=== PATIENT | male | born 1985 | race Caucasian/White ===

== ENCOUNTER 2021-07-23 14:57 | Inpatient (IN) | payer SELFPAY ==
[~2021-07-23] VITALS: Ht 170.2 cm; Wt 86.0 kg
--- NOTE | 2021-07-23 15:07 | ED Chest Pain ---
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 The symptoms became more intense at about 2 PM but initially started at [id number]. He had dizziness and shortness of breath at the time as well. He felt like his heart rate was going too fast and then too slow. Symptoms are better now but still present. EMS did give him 324 mg of aspirin in route to the hospital. He has never had these symptoms before. No cardiac history though he reports a family history of early [place] in their 30s/40s. Takes no medications regularly. He felt okay upon awakening this morning. He did take some Advil at about 11 AM for this chest discomfort but it did not help much. He also drank a [employer] canned coffee prior to the onset of this pain. He then started drinking a bunch of water as he thought the caffeine from his coffee might be the issue. He does have a history of anxiety but reports that he does not feel anxious currently. 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 He does not smoke. Occasionally drinks ETOH, most recently this past weekend but does not drink daily. Timing/Duration: changing over time Severity/Quality: moderate Location: central Radiation: no radiation Activities at Onset: none ASA po AGILE QA TESTER: No NTG SL AGILE QA TESTER: No (AMBER WAITE APRN) Allergies and Home Medications Allergies Coded Allergies: No Known Drug Allergies (Unverified , 07/23/21) Patient Home Medication List Home Medication List Reviewed: Yes (AMBER WAITE APRN) Acetaminophen (Tylenol Extra Strength) 500 Mg Tablet, 1,000 MG PO Q8H PRN for PAIN-MILD (1-4), (Reported) Entered as Reported by: RISHABH CHARLES on 07/24/211530 Last Action: Reviewed Famotidine (Pepcid AC) 10 Mg Tablet, 10 MG PO BID PRN for HEARTBURN, (Reported) Entered as Reported by: RISHABH CHARLES on 3/18/22 1531 Last Action: Reviewed Fluticasone Propionate (Flonase Allergy Relief) 9.9 Ml [place].susp, 1 SPRAY NSEACH BID PRN for CONGESTION, (Reported) Entered as Reported by: RISHABH CHARLES on 07/24/211530 Last Action: Reviewed Loratadine (Claritin) 10 Mg Tablet, 10 MG PO DAILY PRN for ALLERGY SYMPTOMS, (Reported) Entered as Reported by: RISHABH CHARLES on 07/24/211530 Last Action: Reviewed Naproxen Sodium (Aleve) 220 Mg Tablet, 220-440 MG PO Q12H PRN for PAIN-MILD (1- 4), (Reported) Entered as Reported by: RISHABH CHARLES on 07/24/211530 Last Action: Reviewed Review of Systems Review of Systems Constitutional: see HPI EENTM: No Symptoms Reported Respiratory: No Symptoms Reported Cardiovascular: See HPI, Chest Pain Gastrointestinal: No Symptoms Reported Genitourinary: No Symptoms Reported Musculoskeletal: no symptoms reported Skin: no symptoms reported Psychiatric/Neurological: No Symptoms Reported Endocrine: No Symptoms Reported (AMBER WAITE APRN) Physical Exam Vital Signs Vital Signs - First Documented 07/23/21 14:57 Temp 36.3 Pulse 91 Resp 16 B/P (MAP) 149/101 (117) Pulse Ox 99 O2 Delivery Room Air (TAYA TURNER MD) Vital Signs Capillary Refill : (AMBER WAITE APRN) Height, Weight, BMI Height: '" Weight: lbs. oz. kg; BMI Method: General Appearance: No Apparent Distress, WD/WN, Anxious, Other (He denies feeling anxious but he appears anxious as he keeps his eyes closed during conversation, has deep breathing. His heart rate is 87 sinus, oxygen 98% on room air respiratory rate 23. Blood pressure 139/99. His EKG shows sinus rhythm at 94 without ectopy normal intervals and no ST segment changes.) Neck: Full Range of Motion, Normal Inspection Respiratory: Normal Breath Sounds, No Accessory Muscle Use, No Respiratory Distress Cardiovascular: Regular Rate, Rhythm, Normal Peripheral Pulses Gastrointestinal: Normal Bowel Sounds, Non Tender, Soft Extremity: Normal Capillary Refill, Normal Inspection Neurologic/Psychiatric: Alert, Oriented x3 Skin: Normal Color, Warm/Dry (AMBER WAITE APRN) Progress/Results/Core Measures Results/Orders Lab Results Laboratory Tests Test 07/23/21 15:00 07/23/21 16:12 Range/Units White Blood Count 6.9 4.3-11.0 10^3/uL Red Blood Count 4.95 4.30-5.52 10^6/uL Hemoglobin 15.1 13.3-17.7 g/dL Hematocrit 44 40-54 % Mean Corpuscular Volume 89 80-99 fL Mean Corpuscular Hemoglobin 31 25-34 pg Mean Corpuscular Hemoglobin Concent 34 32-36 g/dL Red Cell Distribution Width 13.3 10.0-14.5 % Platelet Count 320 130-400 10^3/uL Mean Platelet Volume 9.9 9.0-12.2 fL Immature Granulocyte % (Auto) 0 % Neutrophils (%) (Auto) 61 42-75 % Lymphocytes (%) (Auto) 30 12-44 % Monocytes (%) (Auto) 8 0-12 % Eosinophils (%) (Auto) 1 0-10 % Basophils (%) (Auto) 0 0-10 % Neutrophils # (Auto) 4.2 1.8-7.8 X 10^3 Lymphocytes # (Auto) 2.1 1.0-4.0 X 10^3 Monocytes # (Auto) 0.6 0.0-1.0 X 10^3 Eosinophils # (Auto) 0.1 0.0-0.3 10^3/uL Basophils # (Auto) 0.0 0.0-0.1 10^3/uL Immature Granulocyte # (Auto) 0.0 0.0-0.1 10^3/uL Prothrombin Time 13.6 12.2-14.7 SEC INR Comment 1.0 0.8-1.4 Activated Partial Thromboplast Time 31 24-35 SEC D-Dimer 0.98 H 0.00-0.49 UG/ML Sodium Level 134 L 135-145 MMOL/L Potassium Level 4.1 3.6-5.0 MMOL/L Chloride Level 102 98-107 MMOL/L Carbon Dioxide Level 19 L 21-32 MMOL/L Anion Gap 13 5-14 MMOL/L Blood Urea Nitrogen 19 H 7-18 MG/DL Creatinine 1.11 0.60-1.30 MG/DL Estimat Glomerular Filtration Rate 88 BUN/Creatinine Ratio 17 Glucose Level 90 70-105 MG/DL Calcium Level 9.3 8.5-10.1 MG/DL Corrected Calcium 9.1 8.5-10.1 MG/DL Magnesium Level 1.7 1.6-2.4 MG/DL Total Bilirubin 0.7 0.1-1.0 MG/DL Aspartate Amino Transf (AST/SGOT) 31 5-34 U/L Alanine Aminotransferase (ALT/SGPT) 39 0-55 U/L Alkaline Phosphatase 56 40-136 U/L Myoglobin 270.9 H 10.0-92.0 NG/ML Troponin I 0.110 H <0.028 NG/ML C-Reactive Protein High Sensitivity 0.28 0.00-0.50 MG/DL B-Type Natriuretic Peptide < 10.0 <100.0 PG/ML Total Protein 7.3 6.4-8.2 GM/DL Albumin 4.3 3.2-4.5 GM/DL Serum Alcohol < 10 <10 MG/DL Erythrocyte Sedimentation Rate 8 0-15 MM/HR (TAYA TURNER MD) My Orders Orders - TAYA TURNER MD Cbc With Automated Diff (07/23/21 15:02) Magnesium (07/23/21 15:02) Chest 1 View, Ap/Pa Only (07/23/21 15:02) Ekg Tracing (07/23/21 15:02) Comprehensive Metabolic Panel (07/23/21 15:02) Myoglobin Serum (07/23/21 15:02) Protime With Inr (07/23/21 15:02) Partial Thromboplastin Time (07/23/21 15:02) O2 (07/23/21 15:02) Monitor-Rhythm Ecg Trace Only (07/23/21 15:02) Ed Iv/Invasive Line Start (07/23/21 15:02) Fibrin Degradation Products (07/23/21 15:00) Troponin I [place] (07/23/21 15:00) (TAYA TURNER MD) Vital Signs/I&O 07/23/21 14:57 Temp 36.3 Pulse 91 Resp 16 B/P (MAP) 149/101 (117) Pulse Ox 99 O2 Delivery Room Air (TAYA TURNER MD) Departure Communication (Admissions) Spoke with Dr. Holden and Dr. Ferrari. He has already had aspirin by EMS, we will do 1 mg/KG Lovenox subcu twice daily first dose now. His heart rate was 91 so put him on a low-dose beta-marques. Toprol-XL [address] Ferrari can review and adjust that. I will order a repeat troponin at 6 hours after the initial which will be about 9 PM and then repeat in the morning. NAME: [facility] REC#: [id number] PT STATUS: REG ER : 1985 PHYSICIAN: TAYA TURNER MD ADMIT DATE: 07/23/21/ER Signed Date of Exam:07/23/21 CHEST 1 VIEW, AP/PA ONLY INDICATION: Chest pain. COMPARISON: None. FINDINGS: Single view of the chest demonstrates clear lungs bilaterally. The heart is normal. There is no pneumothorax. Osseous structures are normal. IMPRESSION: Negative chest. Dictated by: Dictated on workstation # [id number] Dict: 07/23/21 1538 Trans: 07/23/21 1541 [id number] [id number] Interpreted by: JULIANNA STOREY Electronically signed by: JULIANNA STOREY 07/23/21 1541 (AMBER WAITE APRN) Impression Primary Impression: NSTEMI (non-ST elevated myocardial infarction) Disposition: ADMITTED INPATIENT Condition: Stable Admissions Decision to Admit Reason: Admit from ER (General) Decision to Admit/Date: Jul 23, 2021 Time/Decision to Admit Time: 16:09 (AMBER WAITE APRN) Departure-Patient Inst. Referrals: NO,LOCAL PHYSICIAN (PCP/Family) Primary Care Physician ATTENDING PHYSICIAN NOTE: I was physically present as attending physician in the emergency department duri ng the care of this patient, but I was not directly involved in the decision making or delivery of care for this patient. (TAYA TURNER MD) AMBER WAITE APRN Jul 23, 2021 15:07 TAYA TURNER MD Jul 24, 2021 19:41
[2021-07-23] MEDS ORDERED: LORazepam INJ 2 MG/ML (ATIVAN) VIAL IVP PRN (15:15)
[2021-07-23 15:20] LABS: BASOPHILS % (AUTO) 0 % (0-10); EOSINOPHILS # (AUTO) 0.1 10^3/uL (0.0-0.3); EOSINOPHILS % (AUTO) 1 % (0-10); HEMATOCRIT 44 % (40-54); HEMOGLOBIN 15.1 g/dL (13.3-17.7); LYMPHOCYTES # (AUTO) 2.1 X 10^3 (1.0-4.0); LYMPHOCYTES % (AUTO) 30 % (12-44); MEAN CORPUSCULAR HEMOGLOBIN 31 pg (25-34); MEAN CORPUSCULAR HGB CONC 34 g/dL (32-36); MEAN CORPUSCULAR VOLUME 89 fL (80-99); MEAN PLATELET VOLUME 9.9 fL (9.0-12.2); MONOCYTES # (AUTO) 0.6 X 10^3 (0.0-1.0); MONOCYTES % (AUTO) 8 % (0-12); NEUTROPHILS # (AUTO) 4.2 X 10^3 (1.8-7.8); NEUTROPHILS % (AUTO) 61 % (42-75); PLATELET COUNT 320 10^3/uL (130-400); WHITE BLOOD COUNT 6.9 10^3/uL (4.3-11.0)
[2021-07-23] MEDS ORDERED: LORazepam INJ 2 MG/ML (ATIVAN) VIAL IVP ONE (15:21)
[2021-07-23 15:39] LABS: ALBUMIN 4.3 GM/DL (3.2-4.5); POTASSIUM 4.1 MMOL/L (3.6-5.0)
[2021-07-23 15:40] LABS: CALCIUM 9.3 MG/DL (8.5-10.1)
[2021-07-23 15:41] LABS: TOTAL PROTEIN 7.3 GM/DL (6.4-8.2)
--- NOTE | 2021-07-23 15:42 | Diagnostic Imaging Report ---
INDICATION: Chest pain. COMPARISON: None. FINDINGS: Single view of the chest demonstrates clear lungs bilaterally. The heart is normal. There is no pneumothorax. Osseous structures are normal. IMPRESSION: Negative chest. Dictated by: Dictated on workstation # [id number]
[2021-07-23 15:43] LABS: BILIRUBIN,TOTAL 0.7 MG/DL (0.1-1.0)
[2021-07-23 15:44] LABS: FIBRIN DEGRADATION PRODUCTS 0.98 UG/ML (0.00-0.49); PROTHROMBIN TIME PATIENT 13.6 SEC (12.2-14.7)
[2021-07-23 15:45] LABS: CREATININE SERUM 1.11 MG/DL (0.60-1.30)
[2021-07-23 15:48] LABS: MAGNESIUM 1.7 MG/DL (1.6-2.4)
[2021-07-23] MEDS ORDERED: KETOROLAC 30 MG/ML VIAL IVP ONE (16:00)
[2021-07-23] MEDS ORDERED: ENOXAPARIN 40 MG/0.4 ML (LOVENOX) SYR SC ONE (16:30)
[2021-07-23] MEDS ORDERED: ENOXAPARIN 60 MG/0.6 ML (LOVENOX) SYR SC ONE ×2 (16:30→17:00)
[2021-07-23] MEDS ORDERED: NS 100 ML (IVPB) BAG IV ONE (16:30)
[2021-07-23] MEDS ORDERED: IOHEXOL 350 MG/ML 100 ML (OMNIPAQUE 350) VIAL IV ONE (16:30)
[2021-07-23] MEDS ORDERED: HOLD METFORMIN - RECEIVED CONTRAST 20 ML VIAL IV SCH (16:30)
[2021-07-23] MEDS ORDERED: morphine INJ 10 MG/ML 1ML (SYR OR VIAL) IVP STA (16:39)
[2021-07-23] MEDS ORDERED: morphine INJ 10 MG/ML 1ML (SYR OR VIAL) ONE (16:40)
[2021-07-23] MEDS ORDERED: ENOXAPARIN INJECTION 30 MG/0.3 ML SYR ONE (16:45)
[2021-07-23] MEDS ORDERED: ENOXAPARIN 60 MG/0.6 ML (LOVENOX) SYR ONE (16:45)
--- NOTE | 2021-07-23 16:49 | Diagnostic Imaging Report ---
INDICATION: Chest pain and shortness of breath and weakness. TECHNIQUE: Multiple contiguous axial images were obtained through the chest after uneventful bolus administration of intravenous contrast. 3D reconstructed CTA MIP acquisitions were also performed. Auto Exposure Controls were utilized during the CT exam to meet ALARA standards for radiation dose reduction. COMPARISON: There is no prior study for comparison. FINDINGS: The pulmonary parenchymal vessels appear well opacified with no CT evidence of pulmonary emboli. The thoracic aorta shows no evidence of dissection or aneurysm. Great vessel origins are patent and without stenosis. There are no enlarged mediastinal or hilar nodes. There are some calcified nodes in the right hilum and in the subcarinal region compatible with old granulomatous disease. There is no pleural or pericardial fluid. Visualized portions of the upper abdomen appear unremarkable. Lung parenchymal windows demonstrate no consolidation. There is a calcified granuloma in the right lower lobe and a small calcified granuloma in the right upper lobe. IMPRESSION: No CT evidence of pulmonary emboli or aortic dissection or aneurysm. Old granulomatous changes. No acute process in the chest. Dictated by: Dictated on workstation # [id number]
[2021-07-23 16:55] LABS: AMPHETAMINE SCREEN, URINE NEGATIVE (NEGATIVE); BARBITURATE SCREEN URINE NEGATIVE (NEGATIVE); BENZODIAZEPINES SCREEN URINE NEGATIVE (NEGATIVE); CANNABINOID SCREEN, URINE NEGATIVE (NEGATIVE); COCAINE SCREEN URINE NEGATIVE (NEGATIVE); METHADONE STAT NEGATIVE (NEGATIVE); METHAMPHETAMINE SCREEN URINE S NEGATIVE (NEGATIVE); OPIATE SCREEN URINE NEGATIVE (NEGATIVE); OXYCODONE STAT NEGATIVE (NEGATIVE); PROPOXYPHENE STAT NEGATIVE (NEGATIVE); TRICYCLIC ANTIDEPRESSANTS SCRE NEGATIVE (NEGATIVE)
[2021-07-23] MEDS ORDERED: ENOXAPARIN INJECTION 30 MG/0.3 ML SYR SC ONE (17:00)
[2021-07-23] MEDS ORDERED: morphine INJ 4 MG/ML 1 ML (VIAL/SYRINGE) IV PRN (17:30)
[2021-07-23] MEDS ORDERED: ONDANSETRON 4 MG/2 ML (SDV) Z0FRAN IV PRN (17:30)
[2021-07-23] MEDS ORDERED: CATHETER FLUSH 10 ML SYR IVP PRN (17:30)
[2021-07-23] MEDS: LACTATED RINGERS 1,000 ML IV SCH (17:32)
[2021-07-23 19:22] VITALS: BP 123/86
[2021-07-23 22:00] VITALS: BP 112/75
[2021-07-23] MEDS ORDERED: NITROPRUSSIDE INJECTION 50 MG in D5W IV SOLUTION (EXCEL) 250 ML IV SCH (22:00)
[2021-07-23] MEDS ORDERED: NITRO DRIP 25000 MCG/D5W 250 ML IV ONE (22:03)
[2021-07-23] MEDS ORDERED: NITRO DRIP 25000 MCG/D5W 250 ML IV SCH (22:45)
[2021-07-23 23:00] VITALS: BP 108/67
--- NOTE | 2021-07-23 23:37 | Tele-ICU Consult ---
History of Present Illness History of Present Illness Date Seen by Provider: Jul 23, 2021 Time Seen by Provider: 23:33 History of Present Illness 36 yo M came to ED with chest pain, troponin elevated at 0.18 and then 2.37, EKG and CXR ok Started on Lovenox bid, also IV NTG for BP 140/100 CTA did not show any evidence of pulm emb or aortic dissection Allergies and Home Medications Allergies Coded Allergies: No Known Drug Allergies (Unverified , 07/23/21) Past Medical/Social/Family Hx Patient Social History Tobacco Use?: No Smoking Status: Current Someday Smoker Smokeless type used: Snuff Smokeless Tobacco Frequency: Current Someday User Use of E-Cig and/or Vaping dev: No Substance use?: No Alcohol Use?: Yes Alcohol type: Beer, Other Alcohol Frequency: Couple times a week Pt stated abuse/neglect: No Immunizations Up To Date Influenza Vaccine Up-to-Date: No; Not Current Current Status Advance Directives: No Primary Language: Cambodian Preferred Spoken Language: Cambodian Focused Exam Height, Weight, BMI Height: '" Weight: lbs. oz. kg; 30.51 BMI Method: Exam Exam Patient acknowledged, consented, and participated in this virtual visit which was conducted using real time audio/video Vital Signs Date Time Temp Pulse Resp B/P (MAP) Pulse Ox O2 Delivery O2 Flow Rate FiO2 07/23/21 19:22 37.2 90 22 123/86 (98) 99 Room Air 07/23/21 19:00 90 07/23/21 17:30 96 Room Air 07/23/21 17:29 91 07/23/21 17:05 85 15 134/85 98 Room Air 07/23/21 14:57 36.3 91 16 149/101 (117) 99 Room Air Height & Weight Height: '" Weight: lbs. oz. kg; 30.51 BMI Method: General Appearance: No Apparent Distress, WD/WN, Anxious, Other (He denies fe eling anxious but he appears anxious as he keeps his eyes closed during conversation, has deep breathing. His heart rate is 87 sinus, oxygen 98% on room air respiratory rate 23. Blood pressure 139/99. His EKG shows sinus rhythm at 94 without ectopy normal intervals and no ST segment changes.) Neck: Full Range of Motion, Normal Inspection Respiratory: Normal Breath Sounds, No Accessory Muscle Use, No Respiratory Distress Cardiovascular: Regular Rate, Rhythm, Normal Peripheral Pulses Capillary Refill: Less Than 3 Seconds Extremity: Normal Capillary Refill, Normal Inspection Neurologic/Psychiatric: Alert, Oriented x3 Skin: Normal Color, Warm/Dry Results Lab Laboratory Tests 07/23/21 15:00 BRENT BARRERA MD Jul 23, 2021 23:37
--- NOTE | 2021-07-23 23:49 | Tele-ICU Consult ---
History of Present Illness History of Present Illness Date Seen by Provider: Jul 23, 2021 Time Seen by Provider: 23:50 History of Present Illness 36 yo M came to ED with chest pain, troponin elevated at 0.18 and then 2.37, EKG and CXR ok Started on Lovenox bid, also IV NTG for BP 140/100 CTA did not show any evidence of pulm emb or aortic dissection Impression is NSTEMI Chest pain is about same, got morphine in ED Family Hx of CAD Allergies and Home Medications Allergies Coded Allergies: No Known Drug Allergies (Unverified , 07/23/21) Past Medical/Social/Family Hx Patient Social History Tobacco Use?: No Smoking Status: Current Someday Smoker Smokeless type used: Snuff Smokeless Tobacco Frequency: Current Someday User Use of E-Cig and/or Vaping dev: No Substance use?: No Alcohol Use?: Yes Alcohol type: Beer, Other Alcohol Frequency: Couple times a week Pt stated abuse/neglect: No Immunizations Up To Date Influenza Vaccine Up-to-Date: No; Not Current Current Status Advance Directives: No Primary Language: Maldivian Preferred Spoken Language: Maldivian Review of Systems Constitutional: see HPI EENTM: see HPI Respiratory: see HPI Cardiovascular: see HPI Gastrointestinal: see HPI Genitourinary: see HPI Musculoskeletal: see HPI Skin: see HPI Psychiatric/Neurological: See HPI Focused Exam Height, Weight, BMI Height: '" Weight: lbs. oz. kg; 30.51 BMI Method: Exam Exam Patient acknowledged, consented, and participated in this virtual visit which was conducted using real time audio/video Vital Signs Date Time Temp Pulse Resp B/P (MAP) Pulse Ox O2 Delivery O2 Flow Rate FiO2 07/23/21 19:22 37.2 90 22 123/86 (98) 99 Room Air 07/23/21 19:00 90 07/23/21 17:30 96 Room Air 07/23/21 17:29 91 07/23/21 17:05 85 15 134/85 98 Room Air 07/23/21 14:57 36.3 91 16 149/101 (117) 99 Room Air Height & Weight Height: '" Weight: lbs. oz. kg; 30.51 BMI Method: General Appearance: No Apparent Distress, WD/WN, Anxious, Other (He denies feeling anxious but he appears anxious as he keeps his eyes closed during conversation, has deep breathing. His heart rate is 87 sinus, oxygen 98% on room air respiratory rate 23. Blood pressure 139/99. His EKG shows sinus rhythm at 94 without ectopy normal intervals and no ST segment changes.) Neck: Full Range of Motion, Normal Inspection Respiratory: Chest Non Tender, Lungs Clear, Normal Breath Sounds, No Accessory Muscle Use, No Respiratory Distress Cardiovascular: Regular Rate, Rhythm, Normal Peripheral Pulses Capillary Refill: Less Than 3 Seconds Gastrointestinal: normal bowel sounds, non tender Extremity: Normal Capillary Refill, Normal Inspection Neurologic/Psychiatric: Alert, Oriented x3 Skin: Normal Color, Warm/Dry Results Lab Laboratory Tests 07/23/21 15:00 Assessment/Plan Assessment/Plan NSTEMI, probably will go to CCL in am Critical Care: Critically Ill Patient Time spent with patient (mins): 25 BRENT BARRERA MD Jul 23, 2021 23:49
[2021-07-24] VITALS (33 sets, daily range): BP systolic 89–151; BP diastolic 51–95
[2021-07-24] MEDS: LACTATED RINGERS 1,000 ML IV SCH (01:39)
[2021-07-24] MEDS ORDERED: ENOXAPARIN 80 MG/0.8 ML (LOVENOX) SYR SC SCH (05:00)
[2021-07-24 05:13] LABS: BASOPHILS % (AUTO) 1 % (0-10); EOSINOPHILS # (AUTO) 0.2 10^3/uL (0.0-0.3); EOSINOPHILS % (AUTO) 4 % (0-10); HEMATOCRIT 42 % (40-54); LYMPHOCYTES # (AUTO) 2.4 10^3/uL (1.0-4.0); LYMPHOCYTES % (AUTO) 42 % (12-44); MEAN CORPUSCULAR HEMOGLOBIN 31 pg (25-34); MEAN CORPUSCULAR HGB CONC 33 g/dL (32-36); MEAN CORPUSCULAR VOLUME 92 fL (80-99); MEAN PLATELET VOLUME 10.5 fL (9.0-12.2); MONOCYTES # (AUTO) 0.5 10^3/uL (0.0-1.0); MONOCYTES % (AUTO) 9 % (0-12); NEUTROPHILS # (AUTO) 2.5 10^3/uL (1.8-7.8); NEUTROPHILS % (AUTO) 44 % (42-75); PLATELET COUNT 266 10^3/uL (130-400); WHITE BLOOD COUNT 5.6 10^3/uL (4.3-11.0)
[2021-07-24 05:31] LABS: POTASSIUM 4.4 MMOL/L (3.6-5.0)
[2021-07-24 05:33] LABS: CALCIUM 8.7 MG/DL (8.5-10.1)
[2021-07-24] MEDS ORDERED: CATHETER FLUSH 10 ML SYR IV PRN (06:30)
[2021-07-24] MEDS ORDERED: NS IV 1000 ML 1,000 ML IV ONE (06:30)
[2021-07-24] MEDS ORDERED: ROSUVASTATIN 20 MG (CRESTOR) TABLET PO SCH ×2 (06:45→21:00)
[2021-07-24] MEDS ORDERED: HEParin (CATH LAB) 2,000 ML IV ONE (08:18)
[2021-07-24] MEDS ORDERED: LIDOCAINE 1% INJ 50 ML (XYLOCAINE) VIAL ONE (08:18)
[2021-07-24] MEDS ORDERED: NS IV 1000 ML 1,000 ML ONE (08:18)
--- NOTE | 2021-07-24 08:37 | Pre-Op Note & Conscious Sedat ---
Pre-Operative Progress Note H&P Reviewed The H&P was reviewed, patient examined and no changes noted. Date H&P Reviewed: Jul 24, 2021 Time H&P Reviewed: 08:37 Pre-Op Diagnosis: NSTEMI Conscious Sedation Pre-Proced ASA Score 3 For ASA 3 and 4: Consider anesthesia and medical clearance. Also, for patients with a history of failed moderate sedation consider anesthesia. Airway Lungs Heart ASA score ASA 1: a normal healthy patient ASA 2: a patient with a mild systemic disease (mid diabetes, controlled hypertension, obesity ASA 3: a patient with a severe systemic disease that limits activity (angina, COPD, prior Myocardial infarction) ASA 4: a patient with an incapacitating disease that is a constant threat to life (CHF, renal failure) ASA 5: a moribund patient not expected to survive 24 hrs. (ruptured aneurysm) ASA 6: a declared brain- patient whose organs are being harvested. For emergent operations, add the letter E after the classification Mallampati Classification Grade 2 Sedation Plan Analgesia, Amnesia, Plan communicated to team members, Discussed options with patient/fam, Discussed risks with patient/fam The patient is an appropriate candidate to undergo the planned procedure, sedation, and anesthesia. The patient immediately re-assessed prior to indication. SLADE FRANCISCO JR, MD Jul 24, 2021 08:37
[2021-07-24] MEDS: ASPIRIN 81 MG CHEW (CHILDREN'S ASA) PO SCH (08:44)
--- NOTE | 2021-07-24 08:49 | Consultation-Cardiology ---
HPI-Cardiology Cardiology Consultation: Date of Consultation 07/24/21 Date of Admission 07/23/2021 Attending Physician Lainey Holden MD Admitting Physician No,Local Physician Consulting Physician SLADE FRANCISCO JR, MD HPI: Time Seen by a Provider: 08:44 Chief Complaint: Reason for consultation: NSTEMI. I had the pleasure of seeing Ra in the intensive care unit at [facility] in [place], [place] this morning. Yesterday he was unloading some packages from his truck and started developing palpitations and lightheadedness. He felt as though his heart was beating fast. Then he started developing substernal chest discomfort with radiation to his back, shoulders and neck. This made him feel short of breath. At first this was a sharp pain but then changed into a pressure in the center of his chest. He alerted his boss who then called 911 and he was taken to the emergency room for further evaluation. He was treated with aspirin, therapeutic dose of enoxaparin and admitted to the intensive care unit. Late last evening he was still having chest discomfort and I started him on intravenous nitroglycerin. This morning he still has some mild residual chest achiness. Overnight his troponin levels became elevated. He does not report paroxysmal nocturnal dyspnea, orthopnea, syncope, or ankle edema. He chews tobacco occasionally. His father had a myocardial infarction in his 30s. Certain portions of this document may have been dictated utilizing voice recognition technology. Inherent to this technology, typographical and grammatical errors may exist. As much as I am diligent to identify and correct these mistakes, some errors may remain in the document. Review of Systems-Cardiology Review of Systems Other comments Review of 10 organ systems is as per the history of present illness, otherwise negative. [id number]-Mbqljp Hx Patient Social History Smoking Status: Current Someday Smoker Have you traveled recently?: No Alcohol Use?: Yes Pt feels they are or have been: No Past Medical History PMH As described under Assessment. Family Medical History Family Medical History: His father had a myocardial infarction in his 30s. Allergies and Home Medications Allergies Coded Allergies: No Known Drug Allergies (Unverified , 07/23/21) Patient Home Medication List Home Medication List Reviewed: Yes Exam Vital Signs Vital Signs Date Time Temp Pulse Resp B/P (MAP) Pulse Ox O2 Delivery O2 Flow Rate FiO2 07/24/21 08:00 59 14 105/61 (76) 97 07/24/21 08:00 Room Air 07/24/21 07:30 35.9 Physical Exam General: Alert. No acute distress. Well nourished and appears stated age. He is overweight. Eye: Extraocular movements are intact. Conjunctivae are clear. There are no xanthelasma. HENT: Normocephalic. Atraumatic. Carotid pulsations 2/2 without bruits. Neck: Jugular venous pressure does not appear elevated. No thyromegaly appreciated. Respiratory: Lungs are clear to auscultation. Respirations are non-labored. Breath sounds are equal. Symmetrical chest wall expansion. Cardiovascular: Normal rate. Regular rhythm. No murmur. No gallop. Point of maximal impulse is not appear displaced. Good pulses equal in all extremities. No edema. Gastrointestinal: Soft. Normal bowel sounds. Skin: Skin turgor is normal. There is no pallor. Musculoskeletal: No kyphosis or scoliosis appreciated. Neurologic: Alert and oriented to person, place, time. Cranial nerves 3-12 appear grossly intact. The patient has good motor tone strength in the upper and lower extremities bilaterally. Psychiatric: Cooperative. Appropriate mood & affect. Labs Laboratory Tests Test 07/23/21 15:00 07/23/21 16:12 07/23/21 16:34 07/23/21 21:01 Range/Units White Blood Count 6.9 4.3-11.0 10^3/uL Red Blood Count 4.95 4.30-5.52 10^6/uL Hemoglobin 15.1 13.3-17.7 g/dL Hematocrit 44 40-54 % Mean Corpuscular Volume 89 80-99 fL Mean Corpuscular Hemoglobin 31 25-34 pg Mean Corpuscular Hemoglobin Concent 34 32-36 g/dL Red Cell Distribution Width 13.3 10.0-14.5 % Platelet Count 320 130-400 10^3/uL Mean Platelet Volume 9.9 9.0-12.2 fL Immature Granulocyte % (Auto) 0 % Neutrophils (%) (Auto) 61 42-75 % Lymphocytes (%) (Auto) 30 12-44 % Monocytes (%) (Auto) 8 0-12 % Eosinophils (%) (Auto) 1 0-10 % Basophils (%) (Auto) 0 0-10 % Neutrophils # (Auto) 4.2 1.8-7.8 X 10^3 Lymphocytes # (Auto) 2.1 1.0-4.0 X 10^3 Monocytes # (Auto) 0.6 0.0-1.0 X 10^3 Eosinophils # (Auto) 0.1 0.0-0.3 10^3/uL Basophils # (Auto) 0.0 0.0-0.1 10^3/uL Immature Granulocyte # (Auto) 0.0 0.0-0.1 10^3/uL Prothrombin Time 13.6 12.2-14.7 SEC INR Comment 1.0 0.8-1.4 Activated Partial Thromboplast Time 31 24-35 SEC D-Dimer 0.98 H 0.00-0.49 UG/ML Sodium Level 134 L 135-145 MMOL/L Potassium Level 4.1 3.6-5.0 MMOL/L Chloride Level 102 98-107 MMOL/L Carbon Dioxide Level 19 L 21-32 MMOL/L Anion Gap 13 5-14 MMOL/L Blood Urea Nitrogen 19 H 7-18 MG/DL Creatinine 1.11 0.60-1.30 MG/DL Estimat Glomerular Filtration Rate 88 BUN/Creatinine Ratio 17 Glucose Level 90 70-105 MG/DL Calcium Level 9.3 8.5-10.1 MG/DL Corrected Calcium 9.1 8.5-10.1 MG/DL Magnesium Level 1.7 1.6-2.4 MG/DL Total Bilirubin 0.7 0.1-1.0 MG/DL Aspartate Amino Transf (AST/SGOT) 31 5-34 U/L Alanine Aminotransferase (ALT/SGPT) 39 0-55 U/L Alkaline Phosphatase 56 40-136 U/L Myoglobin 270.9 H 10.0-92.0 NG/ML Troponin I 0.110 H 2.377 *H <0.028 NG/ML C-Reactive Protein High Sensitivity 0.28 0.00-0.50 MG/DL B-Type Natriuretic Peptide < 10.0 <100.0 PG/ML Total Protein 7.3 6.4-8.2 GM/DL Albumin 4.3 3.2-4.5 GM/DL Serum Alcohol < 10 <10 MG/DL Erythrocyte Sedimentation Rate 8 0-15 MM/HR Urine Opiates Screen NEGATIVE NEGATIVE Urine Oxycodone Screen NEGATIVE NEGATIVE Urine Methadone Screen NEGATIVE NEGATIVE Urine Propoxyphene Screen NEGATIVE NEGATIVE Urine Barbiturates Screen NEGATIVE NEGATIVE Ur Tricyclic Antidepressants Screen NEGATIVE NEGATIVE Urine Phencyclidine Screen NEGATIVE NEGATIVE Urine Amphetamines Screen NEGATIVE NEGATIVE Urine Methamphetamines Screen NEGATIVE NEGATIVE Urine Benzodiazepines Screen NEGATIVE NEGATIVE Urine Cocaine Screen NEGATIVE NEGATIVE Urine Cannabinoids Screen NEGATIVE NEGATIVE Test 07/24/21 04:30 Range/Units White Blood Count 5.6 4.3-11.0 10^3/uL Red Blood Count 4.58 4.30-5.52 10^6/uL Hemoglobin 14.0 13.3-17.7 g/dL Hematocrit 42 40-54 % Mean Corpuscular Volume 92 80-99 fL Mean Corpuscular Hemoglobin 31 25-34 pg Mean Corpuscular Hemoglobin Concent 33 32-36 g/dL Red Cell Distribution Width 13.6 10.0-14.5 % Platelet Count 266 130-400 10^3/uL Mean Platelet Volume 10.5 9.0-12.2 fL Immature Granulocyte % (Auto) 0 % Neutrophils (%) (Auto) 44 42-75 % Lymphocytes (%) (Auto) 42 12-44 % Monocytes (%) (Auto) 9 0-12 % Eosinophils (%) (Auto) 4 0-10 % Basophils (%) (Auto) 1 0-10 % Neutrophils # (Auto) 2.5 1.8-7.8 10^3/uL Lymphocytes # (Auto) 2.4 1.0-4.0 10^3/uL Monocytes # (Auto) 0.5 0.0-1.0 10^3/uL Eosinophils # (Auto) 0.2 0.0-0.3 10^3/uL Basophils # (Auto) 0.0 0.0-0.1 10^3/uL Immature Granulocyte # (Auto) 0.0 0.0-0.1 10^3/uL Sodium Level 138 135-145 MMOL/L Potassium Level 4.4 3.6-5.0 MMOL/L Chloride Level 108 H 98-107 MMOL/L Carbon Dioxide Level 20 L 21-32 MMOL/L Anion Gap 10 5-14 MMOL/L Blood Urea Nitrogen 17 7-18 MG/DL Creatinine 1.00 0.60-1.30 MG/DL Estimat Glomerular Filtration Rate 100 BUN/Creatinine Ratio 17 Glucose Level 83 70-105 MG/DL Calcium Level 8.7 8.5-10.1 MG/DL Troponin I 6.437 *H <0.028 NG/ML Triglycerides Level 130 <150 MG/DL Cholesterol Level 137 < 200 MG/DL LDL Cholesterol Direct 92 1-129 MG/DL VLDL Cholesterol 26 5-40 MG/DL HDL Cholesterol 35 L 40-60 MG/DL ECG Impression ECG Comment Sinus rhythm with nonspecific inferior T wave changes. Diagnosis/Problems Diagnosis/Problems (1) NSTEMI (non-ST elevated myocardial infarction) Status: Acute Assessment & Plan: He appears to be suffering a non-ST elevation myocardial infarction. I briefly reviewed his echocardiogram at the bedside and he appears to have a normal ejection fraction. Complete report to follow. He has been treated with aspirin, enoxaparin and intravenous nitroglycerin. He continues to have chest discomfort despite these medications. As such, I have recommended further evaluation with a cardiac catheterization. The benefits and risks of the procedure have been explained to the patient and he is in agreement to proceed. (2) Family history of premature coronary artery disease Assessment & Plan: As above. (3) Chewing tobacco use Assessment & Plan: He needs to work on cessation. He was counseled in this regard. SLADE FRANCISCO JR, MD Jul 24, 2021 08:49
--- NOTE | 2021-07-24 08:58 | Tele-ICU Progress Note ---
Progress Note Video assessment done , Hemodynamically stable Available charting reviewed NO TELE-ICU CONSULT REQUESTED CONTINUE TO MONITOR PER USUAL TELE-ICU PROTOCOL No need for Tele-ICU interventions Plans as delineated by bedside physicians / consultants Focused Exam Height, Weight, BMI Height: '" Weight: lbs. oz. kg; 30.51 BMI Method: GUILLAUME SIMMONS MD Jul 24, 2021 08:58
[2021-07-24] MEDS ORDERED: VERAPAMIL 5 MG/2 ML (CALAN) VIAL IV ONE (09:01)
[2021-07-24] MEDS ORDERED: NITRO DRIP 25000 MCG/D5W 250 ML IV ONE (09:02)
[2021-07-24] MEDS ORDERED: fentaNYL INJ 100 MCG/2 ML AMP ONE (09:02)
[2021-07-24] MEDS ORDERED: MIDAZOLAM 5 MG/5 ML (VERSED) VIAL ONE (09:02)
[2021-07-24] MEDS ORDERED: HEParin 1000 UNIT/ML (10ML VIAL) FOR BOLUS ONE (09:02)
[2021-07-24] MEDS ORDERED: ENOXAPARIN 100 MG/1 ML (LOVENOX) SYR ONE (09:50)
[2021-07-24] MEDS ORDERED: TICAGRELOR 90 MG TABLET (BRILINTA) PO ONE (09:54)
[2021-07-24] MEDS ORDERED: PATIENT MAY USE OWN MEDS, ALL PO SCH (10:15)
--- NOTE | 2021-07-24 10:20 | Cardiac Cath Report ---
CARDIAC CATHETERIZATION DATE OF PROCEDURE: 07/24/2021 INDICATION: NSTEMI. HISTORY: The patient is a 36 year old male with no previously known history of coronary artery disease but a very strong family history with his father having had suffered a myocardial infarction in his 30s. Yesterday he was unloading his truck and developed substernal chest discomfort. He called 911 and came to the emergency room for further evaluation. His initial troponin level was marginally elevated. He was treated with aspirin and therapeutic dose of Lovenox. Overnight, his troponin levels have continued to trend upwards and he has had ongoing chest discomfort. As such, he is now referred for further evaluation with a cardiac catheterization. PROCEDURES PERFORMED: 1. Left heart catheterization with hemodynamic measurements. 2. Diagnostic hoh coronary angiography. 3. Drug-eluting stent placement to mid left anterior descending coronary artery. This was the ischemia related vessel for the non-ST elevation myocardial infarction. PROCEDURE DESCRIPTION: After informed consent and in the fasting state, left heart catheterization was performed through the right radial artery utilizing a 6 [place] system by percutaneous approach. A 5 [place] JR4 catheter and a 6 [place] CLS 3.5 guide catheter were utilized for the diagnostic portion of the procedure. The CLS 3.5 guide catheter was utilized for the percutaneous coronary intervention. All catheters were exchanged over a guidewire. Following the procedure, a vascular band was applied to the radial artery access site and the sheath was removed with good hemostasis. RESULTS: HEMODYNAMICS: The aortic pressure was 106/56 mmHg. The left ventricular pressure was 123/0 mmHg with a left ventricular end-diastolic pressure of 15 mmHg. There was no significant pressure gradient upon pullback across the aortic valve. CORONARY ANGIOGRAPHY: Left main coronary artery: Free of significant disease. Left anterior descending coronary artery: There was a 99% stenosis in the midportion of the vessel just distal to a large first diagonal branch. There was SASHA-1 flow to the apex. This was the ischemia related vessel for the non- ST elevation myocardial infarction. Left circumflex coronary artery: Free of significant disease. Right coronary artery: Dominant and free of significant disease. PERCUTANEOUS CORONARY INTERVENTION: Percutaneous coronary intervention was carried out on the left anterior descending coronary artery through the 6 [place] CLS 3.5 guide catheter. I first successfully crossed the stenosis with a [place] guidewire. I subsequently performed coronary angioplasty with a 3 x 12 mm Trek balloon at a pressure of 8 ciera for several inflations. Flow was restored. I subsequently deployed a 3.5 x 18 mm drug-eluting Xience Skypoint stent in the midportion of the left anterior descending coronary artery at a pressure of 16 ciera. I was careful to make sure the proximal edge of the stent did not encroach upon the large diagonal branch. Following stent placement, there was 0% residual stenosis with SASHA-3 flow. There was no evidence of plaque shift into the diagonal branch. IMPRESSION: 1. Normal central aortic pressure with mildly elevated left ventricular end- diastolic pressure. 2. There was severe disease in the midportion of the left anterior descending coronary artery with SASHA-1 flow. This was the ischemia related vessel for the non-ST elevation myocardial infarction. 3. Status post drug-eluting stent placement to the midportion of the left anterior descending coronary artery with a 3.5 x 18 mm Xience Skypoint stent with 0% residual stenosis and SASHA-3 flow. 4. The patient is known to have normal left ventricular systolic function with an estimated ejection fraction of 60-65% by echocardiogram performed prior to the procedure. Certain portions of this document may have been dictated utilizing voice recognition technology. Inherent to this technology, typographical and grammatical errors may exist. As much as I am diligent to identify and correct these mistakes, some errors may remain in the document. SLADE FRANCISCO JR, MD Jul 24, 2021 10:20
[2021-07-24] MEDS: NS IV 1000 ML 1,000 ML IV SCH ×2 (10:40→21:34)
--- NOTE | 2021-07-24 13:35 | History & Physical ---
ROSALINE OLSON 07/24/21 1335: History of Present Illness History of Present Illness Reason for visit/HPI Patient is a 36yo male w/o significant medical history who presented to ER yesterday with chest pain and tachycardia that started while he was unloading a semi-truck at work. He originally attributed the symptoms to the fact that he drank a can of starbucks coffee that morning which he doesnt usually do. He kept working through the pain and started drinking more water and took aleve but it kept worsening. Eventually the pain was sharp enough that he came to the ER. He was started on Lovenox and given some nitro but the chest pain persisted into this morning and his troponins elevated overnight so he was taken to the engineering laboratory technician. He has a family history of early onset CAD. Today he is still fatigued following the cardiac cath but overall feels better. Chest pain has resolved. Denies any shortness of breath, nausea/vomiting, sweats/chills or palpitations. Date of Admission Jul 23, 2021 at 22:06 Date Seen by a Provider: Jul 24, 2021 Time Seen by a Provider: 11:30 I consulted on this patient on 07/24/21 13:11 Attending Physician José Mathur MD Admitting Physician No,Local Physician Consult Allergies and Home Medications Allergies Coded Allergies: No Known Drug Allergies (Unverified , 07/23/21) Patient Home Medication List Aspirin (Children's Aspirin) 81 Mg Tab.chew, 81 MG PO DAILY@0900 Prescribed by: JOSÉ MATHUR on 07/25/21 112 Famotidine (Pepcid AC) 10 Mg Tablet, 10 MG PO BID PRN for HEARTBURN, (Reported) Entered as Reported by: RISHABH CHARLES on 07/24/211530 Last Action: Reviewed Fluticasone Propionate (Flonase Allergy Relief) 9.9 Ml [place].susp, 1 SPRAY NSE ACH BID PRN for CONGESTION, (Reported) Entered as Reported by: RISHABH CHARLES on 07/24/211530 Last Action: Reviewed Isosorbide Mononitrate (Isosorbide Mononitrate ER) 30 Mg Tab.er.24h, 30 MG PO DAILY Prescribed by: JOSÉ MATHUR on 07/25/21 112 Loratadine (Claritin) 10 Mg Tablet, 10 MG PO DAILY PRN for ALLERGY SYMPTOMS, (Reported) Entered as Reported by: RISHABH CHARLES on 07/24/211530 Last Action: Reviewed Metoprolol Succinate (Metoprolol Succinate) 25 Mg Tab.er.24h, 25 MG PO DAILY Prescribed by: JOSÉ MATHUR on 07/25/21 112 Nitroglycerin (Nitroglycerin) 0.4 Mg Tab.subl, 0.4 MG SL NEEDED PRN for CHEST PAIN (ANGINA) Prescribed by: JOSÉ MATHUR on 07/25/21 112 Rosuvastatin Calcium (Rosuvastatin Calcium) 20 Mg Tablet, 20 MG PO HS Prescribed by: JOSÉ MATHUR on 07/25/21 112 Ticagrelor (Brilinta) 90 Mg Tablet, 90 MG PO BID Prescribed by: JOSÉ MATHUR on 07/25/211120 Discontinued Medications Acetaminophen (Tylenol Extra Strength) 500 Mg Tablet, 1,000 MG PO Q8H PRN for PAIN-MILD (1-4), (Reported) Entered as Reported by: RISHABH CHARLES on 07/24/211530 Last Action: Reviewed Naproxen Sodium (Aleve) 220 Mg Tablet, 220-440 MG PO Q12H PRN for PAIN-MILD (1- 4), (Reported) Entered as Reported by: RISHABH CHARLES on 07/24/211530 Last Action: Reviewed Past Lmtumoi-Fcjkfs-Kbxmoc Hx Patient Social History Tobacco Use?: No Smoking Status: Current Someday Smoker Smokeless type used: Snuff Smokeless Tobacco Frequency: Current Someday User Use of E-Cig and/or Vaping dev: No Substance use?: No Alcohol Use?: Yes Alcohol type: Beer, Other Alcohol Frequency: Couple times a week Pt feels they are or have been: No Current Status Advance Directives: No Primary Language: Kinyarwanda Preferred Spoken Language: Kinyarwanda Family Medical History Premature coronary artery disease Review of Systems Constitutional: No chills, No diaphoresis Respiratory: No dyspnea on exertion, No short of breath Cardiovascular: chest pain Gastrointestinal: No abdominal pain, No nausea, No vomiting Physical Exam Vital Signs Vital Signs - First Documented 07/23/21 14:57 Temp 36.3 Pulse 91 Resp 16 B/P (MAP) 149/101 (117) Pulse Ox 99 O2 Delivery Room Air Capillary Refill : Less Than 3 Seconds Height, Weight, BMI Height: '" Weight: lbs. oz. kg; 30.51 BMI Method: General Appearance: No Apparent Distress, WD/WN HEENT: PERRL/EOMI Neck: Non Tender, Supple Respiratory: Lungs Clear, No Accessory Muscle Use, No Respiratory Distress Cardiovascular: Regular Rate, Rhythm, No Edema, Normal Peripheral Pulses Gastrointestinal: Normal Bowel Sounds, Non Tender, Soft Back: Normal Inspection Extremity: Normal Inspection, No Pedal Edema Neurologic/Psychiatric: Alert, Oriented x3 Skin: Normal Color Assessment/Plan Assessment and Plan NSTEMI Family history of early onset CAD - Normal EF on echo - Cardiac cath performed today, stent placed in LAD - Patient started on Aspirin, Ticagrelor, Metoprolol and Crestor - Currently stable, will monitor today and plan on discharge tomorrow if he continues to improve Problems: (1) NSTEMI (non-ST elevated myocardial infarction) Status: Acute (2) Family history of premature coronary artery disease Assessment & Plan: As above. (3) Chewing tobacco use Assessment & Plan: He needs to work on cessation. He was counseled in this regard. Admission Diagnosis Admission Status: Inpatient Order (span 2 midnights) Reason for Inpatient Admission: Monitor vitals, ensure no complications following PCI Clinical Quality Measures AMI/AHF: ASA po Prior to arrival: No JOSÉ MATHUR MD 07/25/212238: Allergies and Home Medications Allergies Coded Allergies: No Known Drug Allergies (Unverified , 07/23/21) Patient Home Medication List Home Medication List Reviewed: Yes Aspirin (Children's Aspirin) 81 Mg Tab.chew, 81 MG PO DAILY@0900 Prescribed by: JOSÉ MATHUR on 07/25/211120 Famotidine (Pepcid AC) 10 Mg Tablet, 10 MG PO BID PRN for HEARTBURN, (Reported) Entered as Reported by: RISHABH CHARLES on 07/24/211530 Last Action: Reviewed Fluticasone Propionate (Flonase Allergy Relief) 9.9 Ml [place].susp, 1 SPRAY NSEACH BID PRN for CONGESTION, (Reported) Entered as Reported by: RISHABH CHARLES on 07/24/21 153 Last Action: Reviewed Isosorbide Mononitrate (Isosorbide Mononitrate ER) 30 Mg Tab.er.24h, 30 MG PO DAILY Prescribed by: JOSÉ MATHUR on 3/19/22 1121 Loratadine (Claritin) 10 Mg Tablet, 10 MG PO DAILY PRN for ALLERGY SYMPTOMS, (Reported) Entered as Reported by: RISHABH CHARLES on 07/24/211530 Last Action: Reviewed Metoprolol Succinate (Metoprolol Succinate) 25 Mg Tab.er.24h, 25 MG PO DAILY Prescribed by: JOSÉ MATHUR on 07/25/211120 Nitroglycerin (Nitroglycerin) 0.4 Mg Tab.subl, 0.4 MG SL NEEDED PRN for CHEST PAIN (ANGINA) Prescribed by: JOSÉ MATHUR on 07/25/211120 Rosuvastatin Calcium (Rosuvastatin Calcium) 20 Mg Tablet, 20 MG PO HS Prescribed by: JOSÉ MATHUR on 07/25/211120 Ticagrelor (Brilinta) 90 Mg Tablet, 90 MG PO BID Prescribed by: JOSÉ MATHUR on 07/25/211120 Discontinued Medications Acetaminophen (Tylenol Extra Strength) 500 Mg Tablet, 1,000 MG PO Q8H PRN for PAIN-MILD (1-4), (Reported) Entered as Reported by: RISHABH CHARLES on 07/24/211530 Last Action: Reviewed Naproxen Sodium (Aleve) 220 Mg Tablet, 220-440 MG PO Q12H PRN for PAIN-MILD (1- 4), (Reported) Entered as Reported by: RISHABH CHARLES on 07/24/211530 Last Action: Reviewed Past Snuscgk-Sigasj-Gpbwfs Hx Family Medical History Premature coronary artery disease Assessment/Plan Assessment and Plan Admitted with NSTEMI. Cardiology consulted. Underwent heart cath with stent placement. Monitor. Supervisory-Addendum Brief Verification & Attestation Participated in pt care: history, MDM, physical Personally performed: exam, history, MDM, supervision of care Care discussed with: Medical Student Procedures: n/a Results interpretation: Verified all documentation A medical student performed and documented this service in my presence. I reviewed and verified all information documented by the medical student and made modifications to such information, when appropriate. I personally performed the physical exam and medical decision making. ROSALINE OLSON Jul 24, 2021 13:35 JOSÉ MATHUR MD Jul 25, 2021 22:39
[2021-07-24] MEDS ORDERED: ACET-2267 PO (15:31)
[2021-07-24] MEDS ORDERED: NAPR220T66 PO (15:31)
[2021-07-24] MEDS ORDERED: FLUT9.9S NSEACH (15:31)
[2021-07-24] MEDS ORDERED: LORA10TA76 PO (15:31)
[2021-07-24] MEDS ORDERED: FAMO10TA43 PO (15:31)
[2021-07-24] MEDS ORDERED: ACETAMINOPHEN 500 MG TAB (TYLENOL) ONE (18:05)
[2021-07-24] MEDS: ACETAMINOPHEN 500 MG TAB (TYLENOL) PO PRN ×2 (18:06→22:04)
[2021-07-24] MEDS ORDERED: ENOXAPARIN 40 MG/0.4 ML (LOVENOX) SYR SC SCH (19:00)
[2021-07-24] MEDS: TICAGRELOR 90 MG TABLET (BRILINTA) PO SCH (20:33)
[2021-07-25] VITALS (10 sets, daily range): BP systolic 106–165; BP diastolic 73–105
[2021-07-25] MEDS: ACETAMINOPHEN 500 MG TAB (TYLENOL) PO PRN ×2 (04:38→09:38)
[2021-07-25 05:18] LABS: HEMATOCRIT 44 % (40-54); HEMOGLOBIN 14.5 g/dL (13.3-17.7); MEAN CORPUSCULAR HEMOGLOBIN 30 pg (25-34); MEAN CORPUSCULAR HGB CONC 33 g/dL (32-36); MEAN CORPUSCULAR VOLUME 91 fL (80-99); MEAN PLATELET VOLUME 10.4 fL (9.0-12.2); PLATELET COUNT 262 10^3/uL (130-400); WHITE BLOOD COUNT 5.6 10^3/uL (4.3-11.0)
[2021-07-25 05:37] LABS: POTASSIUM 4.1 MMOL/L (3.6-5.0)
[2021-07-25 05:43] LABS: CREATININE SERUM 0.93 MG/DL (0.60-1.30)
[2021-07-25] MEDS ORDERED: ENOXAPARIN 40 MG/0.4 ML (LOVENOX) SYR SC SCH (06:00)
[2021-07-25] MEDS: NS IV 1000 ML 1,000 ML IV SCH (06:27)
--- NOTE | 2021-07-25 08:30 | Cardiology Progress Note ---
Progress Note-Cardiology Events since last exam Date Seen by Provider: Jul 25, 2021 Time Seen by Provider: 08:25 Events since last exam I am following him for an NSTEMI that was treated with 1 drug-eluting stent to the mid left anterior descending coronary artery. He still has some mild residual chest tightness. He denies dyspnea, palpitations, syncope, or ankle edema. Certain portions of this document may have been dictated utilizing voice recognition technology. Inherent to this technology, typographical and grammatical errors may exist. As much as I am diligent to identify and correct these mistakes, some errors may remain in the document. Vitals Last set of Vitals Signs Vital Signs 07/25/21 07/25/21 07:00 07:35 Temp 36.1 Pulse 58 Resp 11 B/P (MAP) 155/105 (122) Pulse Ox 99 O2 Delivery Room Air Labs Labs Laboratory Tests 07/25/21 05:08 Exam Vital Signs Vital Signs Date Time Temp Pulse Resp B/P (MAP) Pulse Ox O2 Delivery O2 Flow Rate FiO2 07/25/21 07:35 36.1 07/25/21 07:00 58 07/25/21 07:00 11 155/105 (122) 99 Room Air Physical Exam General: Alert. No acute distress. Eye: No xanthelasma. HENT: Normocephalic. Neck: Jugular venous pressure does not appear elevated. Respiratory: Lungs are clear to auscultation. Respirations are non-labored. Breath sounds are equal. Symmetrical chest wall expansion. Cardiovascular: Normal rate. Regular rhythm. No murmur. No gallop. No edema. Gastrointestinal: Soft. Normal bowel sounds. Skin: Warm. Dry. Neurologic: Alert and oriented to person, place, time. Cranial nerves 3-11 grossly intact. Psychiatric: Cooperative. Appropriate mood & affect. Labs Laboratory Tests Test 07/24/21 10:48 07/25/21 05:08 Range/Units Troponin I 5.808 *H <0.028 NG/ML White Blood Count 5.6 4.3-11.0 10^3/uL Red Blood Count 4.83 4.30-5.52 10^6/uL Hemoglobin 14.5 13.3-17.7 g/dL Hematocrit 44 40-54 % Mean Corpuscular Volume 91 80-99 fL Mean Corpuscular Hemoglobin 30 25-34 pg Mean Corpuscular Hemoglobin Concent 33 32-36 g/dL Red Cell Distribution Width 13.3 10.0-14.5 % Platelet Count 262 130-400 10^3/uL Mean Platelet Volume 10.4 9.0-12.2 fL Sodium Level 138 135-145 MMOL/L Potassium Level 4.1 3.6-5.0 MMOL/L Chloride Level 108 H 98-107 MMOL/L Carbon Dioxide Level 19 L 21-32 MMOL/L Anion Gap 11 5-14 MMOL/L Blood Urea Nitrogen 14 7-18 MG/DL Creatinine 0.93 0.60-1.30 MG/DL Estimat Glomerular Filtration Rate 109 BUN/Creatinine Ratio 15 Glucose Level 81 70-105 MG/DL Calcium Level 9.0 8.5-10.1 MG/DL Diagnosis/Problems Diagnosis/Problems (1) NSTEMI (non-ST elevated myocardial infarction) Status: Acute Assessment & Plan: He suffered a non-ST elevation myocardial infarction due to subtotal occlusion of the midportion of the left anterior descending coronary artery that was treated with 1 drug-eluting stent. There was no evidence of edge dissection or any other issues. However, he still has some mild residual chest tightness. Sometimes this can just be due to the myocardial infarction or stretching of the coronary artery due to the stent. He is on aspirin, ticagrelor, beta-marques and statin medication. I will start him on long-acting nitrates. If his chest tightness resolves later in the day, he could be discharged home. However, if he continues to have chest tightness, he may need to stay for 1 additional night. I should note, he has a normal ejection fraction. (2) Coronary artery disease with unstable angina pectoris Assessment & Plan: As above. (3) Obesity Assessment & Plan: He needs to work on weight loss. He was counseled in this regard. (4) Chewing tobacco use Assessment & Plan: He needs to work on cessation. He was counseled in this regard. (5) Family history of premature coronary artery disease Assessment & Plan: As above. SLADE FRANCISCO JR, MD Jul 25, 2021 08:30
[2021-07-25] MEDS: ASPIRIN 81 MG CHEW (CHILDREN'S ASA) PO SCH (08:32)
[2021-07-25] MEDS ORDERED: ASPI81TA64 PO ×2 (08:33→11:21)
[2021-07-25] MEDS ORDERED: ROSU20TA32 PO ×2 (08:33→11:21)
[2021-07-25] MEDS: TICAGRELOR 90 MG TABLET (BRILINTA) PO SCH (08:33)
[2021-07-25] MEDS ORDERED: TICA90TA PO ×2 (08:33→11:21)
[2021-07-25] MEDS ORDERED: ISOS30TA82 PO ×2 (08:33→11:21)
[2021-07-25] MEDS ORDERED: MTP25TSR PO ×2 (08:33→11:21)
[2021-07-25] MEDS ORDERED: NITROGLYCERIN 0.4 MG SL TABS BTL 25'S SL PRN (08:45)
[2021-07-25] MEDS ORDERED: ISOSORBIDE MONONITRATE 30 MG (IMDUR) TAB PO SCH (09:00)
[2021-07-25] MEDS ORDERED: ANTACID SUSP 30 ML UDC (MYLANTA) PO ONE (10:15)
[2021-07-25] MEDS ORDERED: LIDOCAINE 2% VISCOUS 15 ML UDC PO ONE (10:15)
[2021-07-25] MEDS ORDERED: NITR0.4T42 SL ×2 (10:30→11:21)
--- NOTE | 2021-07-25 22:29 | Discharge Summary ---
Discharge Summary Hospital Course Problems/Dx: (1) NSTEMI (non-ST elevated myocardial infarction) Status: Acute (2) Coronary artery disease with unstable angina pectoris (3) Obesity (4) Chewing tobacco use (5) Family history of premature coronary artery disease Hospital Course zDate of Admission: Jul 23, 2021 at 22:06 Admission Diagnosis : NSTEMI Family Physician/Provider: Na Abarca Physician Date of Discharge: 07/25/21 Discharge Diagnosis: NSTEMI Hospital Course: Ra Cain is a 36 year old male with no known past medical history who presented with chest pain and was admitted with NSTEMI. He has a strong family history of early CAD. Cardiology was consulted and assisted with his care. He underwent a left heart catheterization and was found to have an LAD lesion which was stented. He was started on Aspriin and Brilinta. He was also started on Imdur. He was started on Metoprolol and Crestor. He needs to establish care with a primary care physician in [place]. He also needs to get established with a academic computing director. He was discharged home in stable condition. Labs and Pending Lab Test: Laboratory Tests 07/25/21 05:08: White Blood Count 5.6, Red Blood Count 4.83, Hemoglobin 14.5, Hematocrit 44, Mean Corpuscular Volume 91, Mean Corpuscular Hemoglobin 30, Mean Corpuscular Hemoglobin Concent 33, Red Cell Distribution Width 13.3, Platelet Count 262, Mean Platelet Volume 10.4, Sodium Level 138, Potassium Level 4.1, Chloride Level 108H, Carbon Dioxide Level 19L, Anion Gap 11, Blood Urea Nitrogen 14, Creatinine 0.93, Estimat Glomerular Filtration Rate 109, BUN/Creatinine Ratio 15, Glucose Level 81, Calcium Level 9.0 Home Meds Active Nitroglycerin 0.4 Mg Tab.subl 0.4 Mg SL NEEDED PRN 30 Days Children's Aspirin (Aspirin) 81 Mg Tab.chew 81 Mg PO DAILY@0900 30 Days Metoprolol Succinate 25 Mg Tab.er.24h 25 Mg PO DAILY 30 Days Isosorbide Mononitrate ER (Isosorbide Mononitrate) 30 Mg Tab.er.24h 30 Mg PO DAILY 30 Days Rosuvastatin Calcium 20 Mg Tablet 20 Mg PO HS 30 Days Brilinta (Ticagrelor) 90 Mg Tablet 90 Mg PO BID 30 Days Reported Flonase Allergy Relief (Fluticasone Propionate) 9.9 Ml Astor.susp 1 Astor NSEACH BID PRN Claritin (Loratadine) 10 Mg Tablet 10 Mg PO DAILY PRN Pepcid AC (Famotidine) 10 Mg Tablet 10 Mg PO BID PRN Assessment/Pt Instructions See instructions Discharge Planning: >30 minutes discharge planning Discharge Instructions Discharge Diet: Low Sodium Diet Activity as Tolerated: Yes Consultations Cardiology Discharge Physical Examination Vital Signs Vital Signs Date Time Temp Pulse Resp B/P (MAP) Pulse Ox O2 Delivery O2 Flow Rate FiO2 07/25/21 15:15 36.6 73 15 116/83 100 07/25/21 13:00 Room Air General Appearance: No Apparent Distress, WD/WN Respiratory: Lungs Clear, No Respiratory Distress Cardiovascular: Regular Rate, Rhythm, No Murmur Gastrointestinal: Normal Bowel Sounds, Soft Extremity: Normal Inspection, No Pedal Edema Skin: Normal Color, Warm/Dry Neurologic/Psychiatric: Alert, Oriented x3, Normal Mood/Affect Allergies: Coded Allergies: No Known Drug Allergies (Unverified , 07/23/21) Discharge Summary Date of Admission Jul 23, 2021 at 22:06 Date of Discharge Jul 25, 2021 at 15:19 Discharge Date: Jul 25, 2021 Discharge Time: 15:19 Admission Diagnosis NSTEMI Consults/Procedures Consulations Cardiology Procedures Left heart cath with coronary stenting Discharge Diagnosis (1) NSTEMI (non-ST elevated myocardial infarction) Status: Acute (2) Coronary artery disease with unstable angina pectoris (3) Obesity (4) Chewing tobacco use (5) Family history of premature coronary artery disease Clinical Quality Measures AMI/AHF: ASA po Prior to arrival: JOSÉ Alvarez MD Jul 25, 2021 22:18
== END 2021-07-25 15:19 | disposition home or self-care (01) | DRG 247 ==
LOC: ER 15:01 → CSD 16:21 → OBSVTOIN 22:06 → ICU 22:06
PROVIDERS: ADMIT Internal Medicine; ATTEND Internal Medicine
PROC: 4A023N7 Measurement of Cardiac Sampling and Pressure, Left Heart, Percutaneous Approach (ICD-10-PCS; principal; 2021-07-24)
PROC: 027034Z Dilation of Coronary Artery, One Artery with Drug-eluting Intraluminal Device, Percutaneous Approach (ICD-10-PCS; 2021-07-24)
PROC: B2111ZZ Fluoroscopy of Multiple Coronary Arteries using Low Osmolar Contrast (ICD-10-PCS; 2021-07-24)
DX: I21.4 Non-ST elevation (NSTEMI) myocardial infarction (principal); Z82.49 Family history of ischemic heart disease and other diseases of the circulatory system; F17.210 Nicotine dependence, cigarettes, uncomplicated; Z79.82 Long term (current) use of aspirin; Z79.899 Other long term (current) drug therapy; I25.110 Atherosclerotic heart disease of native coronary artery with unstable angina pectoris; E66.9 Obesity, unspecified; Z68.29 Body mass index [BMI] 29.0-29.9, adult
CPT/HCPCS: 36415; 71045; 71275; 80048; 80053; 80061; 80306; 80320; 83735; 83874; 83880; 84484; 85025; 85027; 85379; 85610; 85652; 85730; 86141; 93005; 93041; 93306; 93458; 96372; 96374; 96375